=== PATIENT | female | born 1985 | race African-American/Black ===

== ENCOUNTER 2018-02-20 14:17 | Emergency (ER) | payer OTHER ==
[~2018-02-20] VITALS: Ht 165.1 cm; Wt 111.1 kg
[2018-02-20] MEDS ORDERED: NORCO 5-325 TA1 EACH PO (15:19)
[2018-02-20] MEDS ORDERED: AUGMENTIN 875-1 EACH PO (15:19)
[2018-02-20] MEDS ORDERED: SENNA-DOCUSATE1 EACH PO (15:19)
[2018-02-20 16:04] VITALS: BP 160/75
== END 2018-02-20 16:05 | disposition home or self-care (01) ==
LOC: ER 14:17
DX: S81.801A Unspecified open wound, right lower leg, initial encounter (principal); W54.0XXA Bitten by dog, initial encounter; Y93.89 Activity, other specified; Y92.89 Other specified places as the place of occurrence of the external cause; Y99.8 Other external cause status

== ENCOUNTER → 2018-03-29 | Outpatient (CLI) | payer OTHER ==
[~2018-03-29] MED LIST: AUGMENTIN 875-1 EACH PO; NORCO 5-325 TA1 EACH PO; SENNA-DOCUSATE1 EACH PO
== END ==
LOC: HYPER 03-10 15:48
DX: S81.811A Laceration without foreign body, right lower leg, initial encounter (principal); J45.909 Unspecified asthma, uncomplicated; F32.9 Major depressive disorder, single episode, unspecified; W54.0XXA Bitten by dog, initial encounter; Y93.89 Activity, other specified; Y92.89 Other specified places as the place of occurrence of the external cause; Y99.8 Other external cause status

== ENCOUNTER → 2018-04-20 | Outpatient (CLI) | payer OTHER | LOC: HYPER 06:46 | DX: S81.811A Laceration without foreign body, right lower leg, initial encounter (principal); J45.909 Unspecified asthma, uncomplicated; F32.9 Major depressive disorder, single episode, unspecified; W54.0XXA Bitten by dog, initial encounter; Y93.89 Activity, other specified; Y92.89 Other specified places as the place of occurrence of the external cause; Y99.8 Other external cause status ==

== ENCOUNTER 2020-05-13 04:31 | Emergency (ER) | payer OTHER ==
[~2020-05-13] VITALS: Ht 165.1 cm; Wt 108.9 kg
[2020-05-13 05:18] VITALS: BP 148/88
== END 2020-05-13 05:18 | disposition home or self-care (01) ==
LOC: ER 04:31
DX: R68.84 Jaw pain (principal); R51.9 Headache, unspecified; R22.0 Localized swelling, mass and lump, head